=== PATIENT | male | born 1945 ===

== ENCOUNTER 2017-07-29 08:52 | Outpatient (CLI) | payer OTHER ==
--- NOTE | 2017-07-29 14:44 | Fluoroscopy Report ---
MODIFIED BARIUM SWALLOW History: dysphagia. Findings: Video radiography was provided by the radiologist for speech therapy to assess the swallowing mechanism. 1 fluoroscopic image was captured. Impression: Successful modified barium swallow.
== END 2017-07-29 08:53 | disposition home or self-care (01) ==
LOC: PT 08:52
PROVIDERS: ATTEND Otolaryngology
DX: R13.10 Dysphagia, unspecified (principal)
CPT/HCPCS: 74230